=== PATIENT | male | born 1945 ===

== ENCOUNTER 2017-10-06 09:09 | Outpatient (CLI) | payer MEDICARE, OTHER | END 2017-10-06 09:10 | disposition EMS.NT | LOC: EMS 09:09 | PROVIDERS: ATTEND Surgery | DX: M25.512 Pain in left shoulder (principal); V43.53XA Car driver injured in collision with pick-up truck in traffic accident, initial encounter; Y92.413 State road as the place of occurrence of the external cause ==

== ENCOUNTER 2020-08-20 10:09 | Outpatient (CLI) | payer MEDICARE, OTHER ==
--- NOTE | 2020-08-20 11:48 | XRAY Report ---
PROCEDURE: Cystography INDICATIONS: URETER CANCER CONTRAST: CONTRAST: cysto-Conray I FLUORO TIME: FLUORO TIME: 1 min and NUMBER IMAGES: 24 COMPARISON: None. FINDINGS: KUB: Preprocedural head of english film demonstrates a normal bowel gas pattern. A Vizcarra catheter is present. No suspicious abdominal calcifications. Bony structures are unremarkable. Bladder: The filled bladder appears normal in contour. Early images demonstrate no bladder wall tra beculations. No vesicoureteral reflux or contrast extravasation. Postvoid: No significant postvoid residual. IMPRESSION: No evidence of bladder leak. Reviewed by: Opal Carias MD on 08/20/2020 11:47 AM PST Approved by: Opal Carias MD on 08/20/2020 11:47 AM PST Station ID: [id number]
[2020-08-20] MEDS ORDERED: IOTHALAMATE MEGLUMINE 250 ML VIAL UR ONE (12:25)
== END 2020-08-20 10:10 | disposition home or self-care (01) ==
LOC: DI 10:09
PROVIDERS: ATTEND Student in an Organized Health Care Education/Training Program
DX: C66.9 Malignant neoplasm of unspecified ureter (principal)

== ENCOUNTER 2024-02-12 15:00 | Outpatient (CLI) | payer MEDICARE, OTHER ==
[2024-02-12 18:00] LABS: HCT - HEMATOCRIT 41.8 % (42.0-52.0); HGB - HEMOGLOBIN 13.5 g/dL (14.0-18.0); MEAN CORPUSCULAR HEMOGLOBIN 33.2 pg (27.0-31.0); MEAN CORPUSCULAR HGB CONC 32.3 g/dL (32.0-36.0); MEAN CORPUSCULAR VOLUME 102.7 fL (80.0-94.0); MEAN PLATELET VOLUME 10.9 fL (7.4-11.4); RED BLOOD COUNT 4.07 10^6/uL (4.70-6.10); RED CELL DISTRIBUTION WIDTH 13.2 % (12.0-15.0); WHITE BLOOD COUNT 7.7 x10^3/uL (4.8-10.8)
[2024-02-12 18:18] LABS: ALBUMIN/GLOBULIN RATIO 1.3 (1.0-2.2); BILIRUBIN,TOTAL 0.4 mg/dL (0.2-1.0); CALCIUM 8.9 mg/dL (8.5-10.3); CREATININE 1.7 mg/dL (0.6-1.3); POTASSIUM 4.6 mmol/L (3.5-4.5); TOTAL PROTEIN 7.1 g/dL (6.4-8.9)
== END 2024-02-12 15:01 | disposition home or self-care (01) ==
LOC: LAB.N 15:00
PROVIDERS: ATTEND Urology
DX: C67.9 Malignant neoplasm of bladder, unspecified (principal)
CPT/HCPCS: 36415; 80053; 85027